=== PATIENT | female | born 1965 | race Caucasian/White ===

== ENCOUNTER 2018-02-18 08:07 | Day surgery (SDC) | payer BC ==
[2018-02-17 11:35] VITALS: BMI 40.6
[2018-02-18 13:16] VITALS: TEMP 98
[2018-02-18 14:46] VITALS: BP 131/73; PULSE 75
== END 2018-02-18 14:46 | disposition home or self-care (01) ==
LOC: JASU-SURG 08:07
PROVIDERS: ATTEND Obstetrics & Gynecology
PROC: 0UB97ZX Excision of Uterus, Via Natural or Artificial Opening, Diagnostic (ICD-10-PCS; principal; 2018-02-18)
PROC: 0UDB7ZX Extraction of Endometrium, Via Natural or Artificial Opening, Diagnostic (ICD-10-PCS; 2018-02-18)
PROC: 0UJD8ZZ Inspection of Uterus and Cervix, Via Natural or Artificial Opening Endoscopic (ICD-10-PCS; 2018-02-18)
DX: N95.0 Postmenopausal bleeding (principal); N84.0 Polyp of corpus uteri
CPT/HCPCS: 36415; 71046-TC-FY; 85610; 85730; 86850; 86900; 86901; 88305-TC; 94010; 94760